=== PATIENT | male | born 1990 | race Caucasian/White ===

== ENCOUNTER 2020-10-27 10:00 | Emergency (ER) | payer OTHER ==
[~2020-10-27] VITALS: Ht 180.3 cm; Wt 80.6 kg
[2020-10-27 12:57] VITALS: BP 124/68
== END 2020-10-27 12:58 | disposition home or self-care (01) ==
LOC: M ED 10:00
DX: S83.402A Sprain of unspecified collateral ligament of left knee, initial encounter (principal); M85.052 Fibrous dysplasia (monostotic), left thigh; X50.1XXA Overexertion from prolonged static or awkward postures, initial encounter; Y92.9 Unspecified place or not applicable; Y93.9 Activity, unspecified; Y99.9 Unspecified external cause status; F17.220 Nicotine dependence, chewing tobacco, uncomplicated